=== PATIENT | female | born 1960 | race Caucasian/White ===

== ENCOUNTER 2018-03-06 10:26 | Inpatient (IN) | payer OTHER ==
[~2018-03-06] VITALS: Ht 165.1 cm; Wt 80.2 kg
[~2018-03-06 10:26] MED LIST: PARO10TA56 PO
[2018-03-06] MEDS ORDERED: ONDANSETRON 2MG/ML, 2ML IVPush ONE (11:30)
[2018-03-06] MEDS ORDERED: LORazepam 2 MG/ML, 1ML IVPush PRN (11:30)
[2018-03-06] MEDS ORDERED: SODIUM CHLORIDE FLUSH 10ML SYR IVF ONE (11:30)
[2018-03-06] MEDS ORDERED: LORazepam 2 MG/ML, 1ML ONE (11:46)
[2018-03-06] MEDS ORDERED: ONDANSETRON 2MG/ML, 2ML ONE (11:47)
[2018-03-06 11:50] LABS: BASOPHILS # (AUTO) 0.07 x10^3/uL (0-0.1); BASOPHILS % (AUTO) 2 % (0-1); EOSINOPHILS # (AUTO) 0.04 x10^3/uL (0-0.4); EOSINOPHILS % (AUTO) 1 % (1-7); LYMPHOCYTES # (AUTO) 2.37 x10^3/uL (1-3.4); LYMPHOCYTES % (AUTO) 51 % (22-44); MD NO; MEAN CORPUSCULAR HEMOGLOBIN 32.2 pg (27.0-34.8); MEAN CORPUSCULAR HGB CONC 34.8 g/dL (32.4-35.8); MEAN CORPUSCULAR VOLUME 92.5 fL (80-100); MEAN PLATELET VOLUME 7.3 fL (7.4-10.4); MONOCYTES # (AUTO) 0.56 x10^3/uL (0.2-0.8); MONOCYTES % (AUTO) 12 % (2-9); NEUTROPHILS # (AUTO) 1.61 x10^3/uL (1.8-6.8); NEUTROPHILS % (AUTO) 35 % (42-75); PLATELET COUNT 358 x10^3/uL (130-400); RED BLOOD COUNT 4.67 x10^6/uL (3.82-5.3); RED CELL DISTRIBUTION WIDTH 14.6 % (9.6-15.2)
--- NOTE | 2018-03-06 11:53 | NUR ---
TREATED WITH ATIVAN FOR TREMORS
[2018-03-06 12:04] LABS: CHLORIDE 102 mmol/L (98-107)
[2018-03-06 12:11] LABS: ALANINE AMINOTRANSFERASE 227 U/L (12-78); ALBUMIN 3.5 g/dL (3.4-5.0); ALKALINE PHOSPHATASE 135 U/L (45-117); ANION GAP 8 mmol/L (5-15); BILIRUBIN,TOTAL 0.4 mg/dL (0.2-1.0); CALCIUM 8.3 mg/dL (8.5-10.1); CREATININE 0.74 mg/dL (0.55-1.02); TOTAL PROTEIN 7.4 g/dL (6.4-8.2)
--- NOTE | 2018-03-06 13:27 | NUR ---
ADMITTING PROVIDER, CHRISTI, AT BEDSIDE.
--- NOTE | 2018-03-06 13:28 | NUR ---
[facility] BEDSIDE HAND-OFF REPORT RECEIVED FROM DWAYNE MCCOLLUM. ASSUMING CARE OF PATIENT.
[2018-03-06] MEDS ORDERED: SODIUM CHLORIDE FLUSH 10ML SYR IVF PRN (13:30)
[2018-03-06] MEDS ORDERED: LORazepam 2 MG/ML, 1ML IV PRN ×4 (14:00)
[2018-03-06] MEDS ORDERED: ONDANSETRON 2MG/ML, 2ML IV PRN (14:00)
[2018-03-06] MEDS ORDERED: LORazepam 1MG TABLET PO PRN ×2 (14:00)
[2018-03-06] MEDS ORDERED: DOCUSATE 100 MG CAPSULE PO PRN (14:00)
[2018-03-06 14:53] LABS: ALBUMIN 3.3 g/dL (3.4-5.0); BILIRUBIN, DIRECT 0.1 mg/dL (0.1-0.2)
[2018-03-06 14:55] LABS: BILIRUBIN,INDIRECT 0.2 mg/dL (0.0-2.0); BILIRUBIN,TOTAL 0.3 mg/dL (0.2-1.0); TOTAL PROTEIN 7.5 g/dL (6.4-8.2)
--- NOTE | 2018-03-06 15:03 | NUR ---
[facility] TELEPHONE HAND-OFF REPORT GIVEN TO DWAYNE AVILA. PATIENT READY TO GO TO HOSPITAL ROOM. ROOM WILL BE READY IN 10 MINUTES.
[2018-03-06] MEDS: HEPARIN 5,000 UNITS/ML, 1ML SQ SCH ×2 (15:58→21:18)
[2018-03-06] MEDS: LORazepam 1MG TABLET PO PRN ×2 (15:58→21:18)
[2018-03-06 16:43] LABS: AMPHETAMINE SCREEN, URINE Negative (Negative); BARBITURATE SCREEN, URINE Negative (Negative); BENZODIAZEPINE SCREEN, URINE Negative (Negative); CANNABINOID SCREEN, URINE Negative (Negative); COCAINE SCREEN, URINE Negative (Negative); METHADONE SCREEN, URINE Negative (Negative); OPIATE SCREEN, URINE Negative (Negative)
[2018-03-06] MEDS: POTASSIUM CHLORIDE 20 MEQ, MAGNESIUM SULFATE 1 GM, FOLIC ACID 1 MG, THIAMINE 200 MG, MV... IV SCH (17:29)
[2018-03-06 19:40] VITALS: BP 123/82
[2018-03-07] MEDS: LORazepam 1MG TABLET PO PRN ×6 (01:36→20:01)
[2018-03-07 01:49] VITALS: BP 146/88
[2018-03-07 05:27] LABS: BASOPHILS # (AUTO) 0.03 x10^3/uL (0-0.1); BASOPHILS % (AUTO) 1 % (0-1); EOSINOPHILS # (AUTO) 0.06 x10^3/uL (0-0.4); EOSINOPHILS % (AUTO) 1 % (1-7); LYMPHOCYTES # (AUTO) 1.55 x10^3/uL (1-3.4); LYMPHOCYTES % (AUTO) 26 % (22-44); MD NO; MEAN CORPUSCULAR HEMOGLOBIN 32.5 pg (27.0-34.8); MEAN CORPUSCULAR HGB CONC 35.4 g/dL (32.4-35.8); MEAN CORPUSCULAR VOLUME 91.7 fL (80-100); MEAN PLATELET VOLUME 7.6 fL (7.4-10.4); MONOCYTES # (AUTO) 0.56 x10^3/uL (0.2-0.8); MONOCYTES % (AUTO) 9 % (2-9); NEUTROPHILS # (AUTO) 3.83 x10^3/uL (1.8-6.8); NEUTROPHILS % (AUTO) 64 % (42-75); PLATELET COUNT 276 x10^3/uL (130-400); RED CELL DISTRIBUTION WIDTH 14.3 % (9.6-15.2)
[2018-03-07 05:32] LABS: ALANINE AMINOTRANSFERASE 182 U/L (12-78); ALBUMIN 2.7 g/dL (3.4-5.0); ANION GAP 7 mmol/L (5-15); CALCIUM 6.9 mg/dL (8.5-10.1); CHLORIDE 106 mmol/L (98-107); CREATININE 0.88 mg/dL (0.55-1.02)
[2018-03-07 05:35] LABS: ALKALINE PHOSPHATASE 111 U/L (45-117); BILIRUBIN,TOTAL 0.5 mg/dL (0.2-1.0); TOTAL PROTEIN 5.9 g/dL (6.4-8.2)
[2018-03-07] MEDS: HEPARIN 5,000 UNITS/ML, 1ML SQ SCH ×3 (06:08→22:12)
[2018-03-07 07:51] VITALS: BP 183/92
[2018-03-07] MEDS: PAROXETINE 10 MG TABLET PO SCH (08:34)
[2018-03-07] MEDS: MULTIVITAMINS/MINERALS TABLET PO SCH (08:34)
[2018-03-07] MEDS ORDERED: MAGNESIUM SULFATE PMX 2GM/50ML 50 ML IV ONE (09:00)
[2018-03-07] MEDS ORDERED: ENALAPRILAT 1.25 MG/ML, 2ML IV PRN (09:00)
[2018-03-07] MEDS ORDERED: SODIUM CHLORIDE 0.9% 1,000 ML IV SCH (09:30)
[2018-03-07 09:33] VITALS: BP 185/113
[2018-03-07 10:18] VITALS: BP 156/84
[2018-03-07 12:28] VITALS: BP 164/95
[2018-03-07] MEDS ORDERED: hydrALAzine 20 MG/ML, 1ML IV PRN (14:00)
[2018-03-07 15:45] LABS: % IRON SATURATION 73 % (20-55); IRON LEVEL 209 mcg/dL (50-170); TOTAL IRON BINDING CAPACITY 285 mcg/dL (250-450)
[2018-03-07] MEDS: POTASSIUM CHLORIDE 20 MEQ, MAGNESIUM SULFATE 1 GM, FOLIC ACID 1 MG, THIAMINE 200 MG, MV... IV SCH (17:31)
[2018-03-07 19:55] VITALS: BP 165/96
[2018-03-08 01:38] VITALS: BP 155/93
[2018-03-08 05:23] LABS: ALBUMIN 3.1 g/dL (3.4-5.0); ANION GAP 7 mmol/L (5-15); CALCIUM 7.6 mg/dL (8.5-10.1); CHLORIDE 105 mmol/L (98-107)
[2018-03-08] MEDS: HEPARIN 5,000 UNITS/ML, 1ML SQ SCH ×3 (05:25→21:41)
[2018-03-08] MEDS: LORazepam 1MG TABLET PO PRN ×2 (05:25→09:15)
[2018-03-08 05:26] LABS: ALANINE AMINOTRANSFERASE 172 U/L (12-78); ALKALINE PHOSPHATASE 155 U/L (45-117); BILIRUBIN,TOTAL 0.9 mg/dL (0.2-1.0); CREATININE 0.72 mg/dL (0.55-1.02); TOTAL PROTEIN 6.8 g/dL (6.4-8.2)
[2018-03-08 05:30] LABS: BASOPHILS # (AUTO) 0.04 x10^3/uL (0-0.1); BASOPHILS % (AUTO) 1 % (0-1); EOSINOPHILS # (AUTO) 0.08 x10^3/uL (0-0.4); EOSINOPHILS % (AUTO) 2 % (1-7); LYMPHOCYTES # (AUTO) 1.24 x10^3/uL (1-3.4); LYMPHOCYTES % (AUTO) 33 % (22-44); MD NO; MEAN CORPUSCULAR HEMOGLOBIN 31.8 pg (27.0-34.8); MEAN CORPUSCULAR HGB CONC 34.5 g/dL (32.4-35.8); MEAN CORPUSCULAR VOLUME 92.1 fL (80-100); MEAN PLATELET VOLUME 7.8 fL (7.4-10.4); MONOCYTES # (AUTO) 0.58 x10^3/uL (0.2-0.8); MONOCYTES % (AUTO) 15 % (2-9); NEUTROPHILS # (AUTO) 1.86 x10^3/uL (1.8-6.8); NEUTROPHILS % (AUTO) 49 % (42-75); PLATELET COUNT 295 x10^3/uL (130-400); RED BLOOD COUNT 4.17 x10^6/uL (3.82-5.3); RED CELL DISTRIBUTION WIDTH 14.7 % (9.6-15.2)
[2018-03-08 07:53] VITALS: BP 168/113
[2018-03-08] MEDS ORDERED: FOLI-17 PO (07:54)
[2018-03-08] MEDS ORDERED: MULT-484 PO (07:54)
[2018-03-08] MEDS ORDERED: AMLO2.5T5 PO (08:01)
[2018-03-08] MEDS ORDERED: AMLODIPINE 5 MG TABLET PO ONE (09:00)
[2018-03-08] MEDS: PAROXETINE 10 MG TABLET PO SCH (09:00)
[2018-03-08] MEDS: MULTIVITAMINS/MINERALS TABLET PO SCH (09:04)
[2018-03-08 10:37] VITALS: BP_SYST 171; BP_SYST 178; BP_DIAS 103; BP_DIAS 107
[2018-03-08] MEDS: LISINOPRIL 10 MG TABLET PO SCH (11:09)
[2018-03-08] MEDS: SODIUM CHLORIDE 0.9% 1,000 ML IV SCH (14:00)
[2018-03-08 14:02] VITALS: BP 152/95
[2018-03-08 20:54] VITALS: BP 130/86
[2018-03-08] MEDS: LORazepam 2 MG/ML, 1ML IV PRN (21:41)
[2018-03-09 02:31] VITALS: BP 124/80
[2018-03-09] MEDS: SODIUM CHLORIDE 0.9% 1,000 ML IV SCH ×2 (02:35→12:00)
[2018-03-09] MEDS: HEPARIN 5,000 UNITS/ML, 1ML SQ SCH ×2 (05:58→16:30)
[2018-03-09 05:59] LABS: BASOPHILS # (AUTO) 0.04 x10^3/uL (0-0.1); BASOPHILS % (AUTO) 1 % (0-1); EOSINOPHILS # (AUTO) 0.15 x10^3/uL (0-0.4); EOSINOPHILS % (AUTO) 3 % (1-7); LYMPHOCYTES # (AUTO) 1.68 x10^3/uL (1-3.4); LYMPHOCYTES % (AUTO) 36 % (22-44); MD NO; MEAN CORPUSCULAR HGB CONC 34.6 g/dL (32.4-35.8); MEAN CORPUSCULAR VOLUME 92.5 fL (80-100); MEAN PLATELET VOLUME 8.1 fL (7.4-10.4); MONOCYTES # (AUTO) 0.54 x10^3/uL (0.2-0.8); MONOCYTES % (AUTO) 11 % (2-9); NEUTROPHILS # (AUTO) 2.29 x10^3/uL (1.8-6.8); NEUTROPHILS % (AUTO) 49 % (42-75); PLATELET COUNT 258 x10^3/uL (130-400); RED BLOOD COUNT 3.98 x10^6/uL (3.82-5.3); RED CELL DISTRIBUTION WIDTH 15.1 % (9.6-15.2)
[2018-03-09 06:03] LABS: CHLORIDE 110 mmol/L (98-107)
[2018-03-09 06:08] LABS: ALANINE AMINOTRANSFERASE 125 U/L (12-78); ALBUMIN 2.7 g/dL (3.4-5.0); ALKALINE PHOSPHATASE 144 U/L (45-117); ANION GAP 8 mmol/L (5-15); BILIRUBIN,TOTAL 0.7 mg/dL (0.2-1.0); CALCIUM 7.5 mg/dL (8.5-10.1); CREATININE 0.62 mg/dL (0.55-1.02); TOTAL PROTEIN 6.2 g/dL (6.4-8.2)
[2018-03-09 07:44] VITALS: BP 129/82
[2018-03-09] MEDS: LORazepam 2 MG/ML, 1ML IV PRN (08:24)
[2018-03-09] MEDS ORDERED: CYANOCOBALAMIN 1,000 MCG TABLET PO SCH (09:00)
[2018-03-09] MEDS ORDERED: FOLIC ACID 1 MG TABLET PO SCH (09:00)
[2018-03-09] MEDS: MULTIVITAMINS/MINERALS TABLET PO SCH (09:33)
[2018-03-09] MEDS: LISINOPRIL 10 MG TABLET PO SCH (09:34)
[2018-03-09] MEDS: PAROXETINE 10 MG TABLET PO SCH (09:35)
[2018-03-09] MEDS: hydrOXyzine 10MG TABLET PO PRN ×2 (09:43→17:02)
[2018-03-09 12:43] VITALS: BP 136/89
[2018-03-09] MEDS ORDERED: HYDR25TA11 PO (16:43)
== END 2018-03-09 17:54 | disposition home or self-care (01) | DRG 433 ==
LOC: ED 13:33 → EDIP 13:44 → 4EST 15:47
PROVIDERS: ADMIT Hospitalist; ATTEND Hospitalist
DX: K70.40 Alcoholic hepatic failure without coma (principal); F10.239 Alcohol dependence with withdrawal, unspecified; F10.221 Alcohol dependence with intoxication delirium; E83.42 Hypomagnesemia; K70.10 Alcoholic hepatitis without ascites; F41.9 Anxiety disorder, unspecified; R73.9 Hyperglycemia, unspecified; Z90.710 Acquired absence of both cervix and uterus
CPT/HCPCS: 36415; 99285; J7042; 80053; 80076; 80307; 83540; 83550; 83690; 83735; 84100; 85025; 96374; 96375; G0378; J1644; J2405; J3411; J3475; J3480; J2060; J7030